=== PATIENT | male | born 2005 | race Caucasian/White ===

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

== ENCOUNTER 2023-01-04 14:19 | Outpatient (CLI) | payer BC | END 2023-01-04 14:20 | disposition home or self-care (01) | LOC: CSHWCC 14:19 | PROVIDERS: ATTEND Nurse Practitioner Family | DX: T81.89XD Other complications of procedures, not elsewhere classified, subsequent encounter (principal) | CPT/HCPCS: 97605 ==

== ENCOUNTER 2023-01-08 09:53 | Outpatient (CLI) | payer BC | END 2023-01-08 09:54 | disposition home or self-care (01) | LOC: CSHWCC 09:53 | PROVIDERS: ATTEND Nurse Practitioner Family | DX: T81.89XD Other complications of procedures, not elsewhere classified, subsequent encounter (principal) ==

== ENCOUNTER 2023-01-29 09:52 | Outpatient (CLI) | payer BC | END 2023-01-29 09:53 | disposition home or self-care (01) | LOC: CSHWCC 09:52 | PROVIDERS: ATTEND Nurse Practitioner Family | DX: T81.89XD Other complications of procedures, not elsewhere classified, subsequent encounter (principal) | CPT/HCPCS: 97605 ==

== ENCOUNTER 2023-02-02 13:55 | Outpatient (CLI) | payer BC | END 2023-02-02 13:56 | disposition home or self-care (01) | LOC: CSHWCC 13:55 | PROVIDERS: ATTEND Nurse Practitioner Family | DX: T81.89XD Other complications of procedures, not elsewhere classified, subsequent encounter (principal) | CPT/HCPCS: 17250; 99212; G0463 ==

== ENCOUNTER 2023-02-08 15:25 | Outpatient (CLI) | payer BC | END 2023-02-08 15:26 | disposition home or self-care (01) | LOC: CSHWCC 15:25 | PROVIDERS: ATTEND Nurse Practitioner Family | DX: T81.89XD Other complications of procedures, not elsewhere classified, subsequent encounter (principal) ==

== ENCOUNTER 2023-02-11 13:37 | Outpatient (CLI) | payer BC | END 2023-02-11 13:38 | disposition home or self-care (01) | LOC: CSHWCC 13:37 | PROVIDERS: ATTEND Nurse Practitioner Family | DX: T81.89XD Other complications of procedures, not elsewhere classified, subsequent encounter (principal) ==

== ENCOUNTER 2023-02-16 14:37 | Outpatient (CLI) | payer BC | END 2023-02-16 14:38 | disposition home or self-care (01) | LOC: CSHWCC 14:37 | PROVIDERS: ATTEND Nurse Practitioner Family | DX: T81.89XD Other complications of procedures, not elsewhere classified, subsequent encounter (principal) ==

== ENCOUNTER 2023-03-02 15:24 | Outpatient (CLI) | payer BC | END 2023-03-02 15:25 | disposition home or self-care (01) | LOC: CSHWCC 15:24 | PROVIDERS: ATTEND Nurse Practitioner Family | DX: T81.89XD Other complications of procedures, not elsewhere classified, subsequent encounter (principal) ==

== ENCOUNTER 2023-07-01 10:04 | Outpatient (CLI) | payer BC | END 2023-07-01 10:05 | disposition home or self-care (01) | LOC: CSHWCC 10:04 | PROVIDERS: ATTEND Nurse Practitioner Family | DX: T81.89XD Other complications of procedures, not elsewhere classified, subsequent encounter (principal) | CPT/HCPCS: 99213; G0463 ==

== ENCOUNTER 2023-07-09 12:50 | Outpatient (CLI) | payer BC | END 2023-07-09 12:51 | disposition home or self-care (01) | LOC: CSHWCC 12:50 | PROVIDERS: ATTEND Nurse Practitioner Family | DX: T81.89XD Other complications of procedures, not elsewhere classified, subsequent encounter (principal) ==

== ENCOUNTER 2023-08-05 13:03 | Outpatient (CLI) | payer BC | END 2023-08-05 13:04 | disposition home or self-care (01) | LOC: CSHWCC 13:03 | PROVIDERS: ATTEND Preventive Medicine Undersea and Hyperbaric Medicine | DX: T81.89XD Other complications of procedures, not elsewhere classified, subsequent encounter (principal) | CPT/HCPCS: 97602 ==

== ENCOUNTER 2023-08-12 13:16 | Outpatient (CLI) | payer BC | END 2023-08-12 13:17 | disposition home or self-care (01) | LOC: CSHWCC 13:16 | PROVIDERS: ATTEND Physician Assistant | DX: T81.89XD Other complications of procedures, not elsewhere classified, subsequent encounter (principal) | CPT/HCPCS: 97602 ==

== ENCOUNTER 2023-08-19 13:29 | Outpatient (CLI) | payer BC | END 2023-08-19 13:30 | disposition home or self-care (01) | LOC: CSHWCC 13:29 | PROVIDERS: ATTEND Preventive Medicine Undersea and Hyperbaric Medicine | DX: T81.89XD Other complications of procedures, not elsewhere classified, subsequent encounter (principal) | CPT/HCPCS: 97602 ==

== ENCOUNTER 2023-09-02 13:29 | Outpatient (CLI) | payer BC | END 2023-09-02 13:30 | disposition home or self-care (01) | LOC: CSHWCC 13:29 | PROVIDERS: ATTEND Physician Assistant | DX: L98.411 Non-pressure chronic ulcer of buttock limited to breakdown of skin (principal) | CPT/HCPCS: 99212; G0463 ==

== ENCOUNTER 2023-09-17 08:29 | Outpatient (CLI) | payer BC | END 2023-09-17 08:30 | disposition home or self-care (01) | LOC: CSHWCC 08:29 | PROVIDERS: ATTEND Physician Assistant | DX: L98.411 Non-pressure chronic ulcer of buttock limited to breakdown of skin (principal) | CPT/HCPCS: 99212; G0463 ==

== ENCOUNTER 2023-09-30 08:23 | Outpatient (CLI) | payer BC | END 2023-09-30 08:24 | disposition home or self-care (01) | LOC: CSHWCC 08:23 | PROVIDERS: ATTEND Preventive Medicine Undersea and Hyperbaric Medicine | DX: L05.92 Pilonidal sinus without abscess (principal) | CPT/HCPCS: 99213; G0463 ==